=== PATIENT | female | born 1980 | race Caucasian/White ===

== ENCOUNTER 2019-04-18 14:13 | Emergency (ER) | payer BC, MEDICAID ==
[~2019-04-18] VITALS: Ht 165.1 cm; Wt 91.4 kg
[~2019-04-18 14:13] MED LIST: ALBU18HF2 INH; DULO-31 PO; DULO60CA45 PO; FLUT1DIS4 INH; HYDR-4383 PO; MOME17SP BOTHNARES; MONT10TA26 PO; ONDA8TAB6 PO; PANT-47 PO; PRED20TA PO; SUMA100T16 PO
[2019-04-18 15:12] VITALS: BP 159/117
== END 2019-04-18 16:20 | disposition home or self-care (01) ==
LOC: ER 14:13
DX: J06.9 Acute upper respiratory infection, unspecified (principal); G43.909 Migraine, unspecified, not intractable, without status migrainosus; J45.909 Unspecified asthma, uncomplicated; G89.29 Other chronic pain; Z90.49 Acquired absence of other specified parts of digestive tract; Z79.899 Other long term (current) drug therapy; Z88.1 Allergy status to other antibiotic agents; Z88.0 Allergy status to penicillin
CPT/HCPCS: 71045; 99283